=== PATIENT | male | born 1975 | race Hispanic/Latino ===

== ENCOUNTER 2017-06-03 21:04 | Emergency (ER) | payer MEDICAID ==
--- NOTE | 2017-06-03 21:38 | C.PDOC ---
History Of Present Illness Patient presents to the ER with a complaint of feeling weak, tired, and has noticed increased urination, associated with constipation. Patient states he feels very tired and reports he has been exerting himself shoveling snow. Denies dysuria, nausea, vomiting, fever, or chills. Time Seen by Provider: 06/03/17 21:37 Chief Complaint (Nursing): Male Genitourinary History Per: Patient History/Exam Limitations: no limitations Onset/Duration Of Symptoms: Hrs Current Symptoms Are (Timing): Still Present Severity: Moderate Pain Scale Rating Of: 4 Quality Of Discomfort: Unable To Describe Associated Symptoms: Constipation. denies: Fever, Chills, Nausea, Vomiting Alleviating Factors: None Recent travel outside of the [place]: No Past Medical History Reviewed: Historical Data, Nursing Documentation, Vital Signs Vital Signs: Last Vital Signs Temp 98.0 F 06/04/17 01:46 Pulse 83 06/04/17 01:46 Resp 16 06/04/17 01:46 BP 109/58 L 06/04/17 01:46 Pulse Ox 95 06/04/17 01:46 - Medical History PMH: Asthma Family History: States: No Known Family Hx - Social History Hx Tobacco Use: Yes Hx Alcohol Use: Yes Hx Substance Use: Yes - Immunization History Hx Tetanus Toxoid Vaccination: Yes Hx Influenza Vaccination: No Hx Pneumococcal Vaccination: No Review Of Systems Constitutional: Positive for: Weakness. Negative for: Fever, Chills Gastrointestinal: Positive for: Constipation. Negative for: Nausea, Vomiting, Abdominal Pain, Diarrhea Genitourinary: Positive for: Other (Increased urination). Negative for: Dysuria Physical Exam - Physical Exam Appears: Non-toxic, No Acute Distress Skin: Warm, Dry Head: Normacephalic Oral Mucosa: Moist Chest: Symmetrical, No Tenderness Cardiovascular: Rhythm Regular Respiratory: No Rales, No Rhonchi, No Wheezing Gastrointestinal/Abdominal: Soft, No Tenderness Neurological/Psych: Oriented x3 ED Course And Treatment - Laboratory Results Result Diagrams: 06/03/17 22:43 06/03/17 22:43 O2 Sat by Pulse Oximetry: 97 (Room air) Pulse Ox Interpretation: Normal - Radiology CXR: Interpreted by Me, Viewed By Me CXR Interpretation: No: Infiltrates, Fracture, Pnemothorax - Other Rad obstr X-Ray: Interpreted by Me, Viewed By Me Interpretation: no free air, lots of stool, no obstr Progress Note: Blood work, CXR, and urinalysis ordered. IV fluids administered. Reevaluation Time: 05:06 Reassessment Condition: Improved Disposition Counseled Patient/Family Regarding: Studies Performed, Diagnosis, Need For Followup, Rx Given - Disposition Referrals: [facility] [Outside] Disposition: HOME/ ROUTINE Disposition Time: 21:38 Condition: FAIR Prescriptions: Polyethylene Glycol 3350 [Miralax] 17 gm PO DAILY #270 ml Instructions: Constipation, Adult (DC) Forms: [employer] (Maori) - Clinical Impression Clinical Impression: Abdominal pain, Constipation - Scribe Statement The provider has reviewed the documentation as recorded by the Scribe Sukh gR All medical record entries made by the Scribe were at my direction and personally dictated by me. I have reviewed the chart and agree that the record accurately reflects my personal performance of the history, physical exam, medical decision making, and the department course for this patient. I have also personally directed, reviewed, and agree with the discharge instructions and disposition.
[2017-06-03] MEDS ORDERED: Sodium Chloride 0.9% 1,000 ML IV ONE (21:51)
[2017-06-03 22:36] LABS: VENOUS BLOOD GAS BASE EXCESS 6.2 mmol/L (0.0-2.0); VENOUS BLOOD GAS PCO2 54 mmHg (40-60); VENOUS BLOOD GAS PO2 18 mm/Hg (30-55); VENOUS BLOOD PH 7.39 (7.32-7.43)
[2017-06-03 22:47] LABS: BASO # 0.1 K/uL (0.0-0.2); BASO % 1.3 % (0.0-2.0); EOS # 0.1 K/uL (0.0-0.7); HEMOGLOBIN 13.9 g/dL (12.0-18.0); LYMPH # 1.3 K/uL (1.0-4.3); LYMPH % 19.4 % (20.0-40.0); MEAN CELL VOLUME 96.6 fL (80.0-94.0); MEAN CORPUSCULAR HEMOGLOBIN 33.7 pg (27.0-31.0); MEAN CORPUSCULAR HGB CONC 34.8 g/dL (33.0-37.0); MONO # 0.7 K/uL (0.0-0.8); MONO % 9.6 % (0.0-10.0); NEUT # 4.7 K/uL (1.8-7.0); NEUT % 68.7 % (50.0-75.0); RBC 4.14 Mil/uL (4.40-5.90); RED CELL DISTRIBUTION WIDTH 13.8 % (11.5-14.5); WHITE BLOOD COUNT 6.9 K/uL (4.8-10.8)
[2017-06-03 23:01] LABS: ALB/GLOB RATIO 1.3 (1.0-2.1); ALBUMIN 4.1 g/dL (3.5-5.0); CALCIUM 8.8 mg/dl (8.6-10.4); GFR AFRICAN-AMERICAN > 60; GFR NON-AFRICAN AMERICAN > 60; LIPASE 37 U/L (23-300)
[2017-06-03 23:06] LABS: ALT/SGPT 30 U/L (21-72); AST/SGOT 51 U/L (17-59); BLOOD UREA NITROGEN 19 mg/dL (9-20)
[2017-06-04 01:48] VITALS: RESP 16
[2017-06-04 05:26] VITALS: BP 105/62; PULSE 82; TEMP 97.7; O2SAT 96
--- NOTE | 2017-06-04 07:31 | RAD ---
Chest x-ray single frontal view History: Shortness of breath. Comparison: None available. Findings: No focal infiltrate or effusion. Heart size within normal limits. Mild left hilar prominence. Impression: No focal infiltrate or effusion.
--- NOTE | 2017-06-04 08:28 | RAD ---
Abdomen four views History: Abdominal pain. Constipation. Comparison: None available. Findings: Lung arreaga are clear. Relative paucity of small bowel gas. Moderate fecal retention in the colon. Calcified phleboliths in the pelvis. Impression: Nonspecific bowel gas pattern with moderate fecal retention in the colon. Relative paucity of small bowel gas.
== END 2017-06-04 06:04 | disposition home or self-care (01) ==
LOC: C.ER 21:04
DX: K59.00 Constipation, unspecified (principal); R10.9 Unspecified abdominal pain; Z72.0 Tobacco use
CPT/HCPCS: 71045; 74022; 80053; 82009; 82803; 83690; 83735; 85025; 99284; J7040

== ENCOUNTER 2017-08-14 21:01 | Emergency (ER) | payer MEDICAID ==
[2017-08-14 21:44] VITALS: BP 141/93; PULSE 78; RESP 18; TEMP 98.1; O2SAT 99
[2017-08-14] MEDS ORDERED: Bacitracin 500 Units/gm Oint Foilpak UD TOP ONE (21:44)
--- NOTE | 2017-08-14 21:47 | C.PDOC ---
History Of Present Illness 41yo male, presents to ER with complaints of right foot pain for the last couple days. Patient states he is homeless and walks around a lot which he believed caused the pain. Patient is requesting to soak his feet. He denies any trauma, rash, itching to the foot, change in sensation, fevers or chills. Time Seen by Provider: 08/14/17 21:35 Chief Complaint (Nursing): Lower Extremity Problem/Injury History Per: Patient History/Exam Limitations: no limitations Onset/Duration Of Symptoms: Persistent Current Symptoms Are (Timing): Still Present Additional History Per: Patient Past Medical History Reviewed: Historical Data, Nursing Documentation, Vital Signs Vital Signs: Last Vital Signs Temp 98.1 F 08/14/17 21:42 Pulse 78 08/14/17 21:42 Resp 18 08/14/17 21:42 BP 141/93 H 08/14/17 21:42 Pulse Ox 99 08/15/17 11:51 - Medical History PMH: Asthma Surgical History: No Surg Hx Family History: States: No Known Family Hx, Unknown Family Hx - Social History Hx Tobacco Use: Yes Hx Alcohol Use: Yes Hx Substance Use: Yes - Immunization History Hx Tetanus Toxoid Vaccination: Yes Hx Influenza Vaccination: No Hx Pneumococcal Vaccination: No Review Of Systems Except As Marked, All Systems Reviewed And Found Negative. Constitutional: Negative for: Fever, Chills Musculoskeletal: Positive for: Foot Pain (right foot pain). Negative for: Other (trauma/injury to foot) Physical Exam - Physical Exam Appears: Non-toxic, No Acute Distress Skin: Warm, Dry Head: Atraumatic, Normacephalic Eye(s): bilateral: Normal Inspection, EOMI Neck: Supple Chest: Symmetrical Respiratory: No Accessory Muscle Use, Other (speaking in full sentences) Extremity: Normal ROM, Tenderness (tenderness to right 2nd toe with 1 cm circular area of erythema to the lateral aspect where 3rd toe is rubbing against it. mild discharge noted, no streaking or fluctuance.), No Pedal Edema, Capillary Refill (< 2 seconds), No Deformity, Other (+ nail hypertrophy on feet. no scaling of skin noted.) Pulses: Left Dorsalis Pedis: Normal, Right Dorsalis Pedis: Normal Neurological/Psych: Oriented x3, Normal Speech, Normal Motor, Normal Sensation ED Course And Treatment O2 Sat by Pulse Oximetry: 99 (RA) Pulse Ox Interpretation: Normal Progress Note: Feet soaked and cleaned, bacitracin applied and covereed with sterile dressing. No evidence of maría pedis. Patient given first dose of Kefflex in ER and instructed to take antibitoics as prescribed. Instructed to follow up in clinic in 2-3 days. Disposition - Disposition Disposition: HOME/ ROUTINE Disposition Time: 21:45 Condition: STABLE Additional Instructions: Follow up with your primary medical doctor or clinic in 2-3 days for further evaluation. Take medications as prescribed. Return to the emergency department at any time if symptoms persist or worsen. Prescriptions: Bacitracin OINT 1 applic TP BID #1 tube Cephalexin [cephalexin] 500 mg PO BID 7 Days cap Instructions: Wound Care (DC) Forms: [employer] (Bolivian) - Clinical Impression Clinical Impression: Toe pain, Open wound - PA / BUILDING MAINTENANCE TECHNICIAN / Resident Statement MD/DO has reviewed & agrees with the documentation as recorded. - Scribe Statement The provider has reviewed the documentation as recorded by the Scribe (Ciara Vidal) Provider Attestation: All medical record entries made by the Scribe were at my direction and personally dictated by me. I have reviewed the chart and agree that the record accurately reflects my personal performance of the history, physical exam, medical decision making, and the department course for this patient. I have also personally directed, reviewed, and agree with the discharge instructions and disposition.
[2017-08-14] MEDS ORDERED: Bacitracin 500 Units/gm Oint Foilpak UD ONE (21:59)
== END 2017-08-14 22:21 | disposition home or self-care (01) ==
LOC: C.ER 21:01
DX: S91.104A Unspecified open wound of right lesser toe(s) without damage to nail, initial encounter (principal); X58.XXXA Exposure to other specified factors, initial encounter; Z59.0 Homelessness

== ENCOUNTER 2017-08-16 04:12 | Emergency (ER) | payer MEDICAID ==
[2017-08-16 04:34] VITALS: BP 153/78; PULSE 82; TEMP 97.6; O2SAT 96
[2017-08-16] MEDS ORDERED: Bacitracin 500 Units/gm Oint Foilpak UD ONE (05:28)
[2017-08-16] MEDS ORDERED: Bacitracin 500 Units/gm Oint Foilpak UD TOP ONE (05:34)
--- NOTE | 2017-08-16 05:57 | C.PDOC ---
History Of Present Illness 41 year old male presents to the ED for evaluation of pain to the ingrown toenail on his left second toe which began 2 days ago. Patient notes drainage from the area. He denies fever, chills, or trauma to the area. Time Seen by Provider: 08/16/17 04:42 Chief Complaint (Nursing): Lower Extremity Problem/Injury History Per: Patient History/Exam Limitations: no limitations Onset/Duration Of Symptoms: Days (2) Current Symptoms Are (Timing): Still Present Additional History Per: Patient - Ankle/Foot Description Of Injury: denies: Fell, Struck With Object, Struck Against Object Past Medical History Reviewed: Historical Data, Nursing Documentation, Vital Signs Vital Signs: Last Vital Signs Temp 97.6 F 08/16/17 04:31 Pulse 82 08/16/17 04:31 Resp 18 08/16/17 06:10 BP 153/78 H 08/16/17 04:31 Pulse Ox 96 08/16/17 06:40 - Medical History PMH: Asthma Surgical History: No Surg Hx Family History: States: Unknown Family Hx - Social History Hx Tobacco Use: Yes Hx Alcohol Use: Yes Hx Substance Use: No - Immunization History Hx Tetanus Toxoid Vaccination: Yes Hx Influenza Vaccination: No Hx Pneumococcal Vaccination: No Review Of Systems Musculoskeletal: Positive for: Other (left 2nd toe pain ) Physical Exam - Physical Exam Appears: Non-toxic, No Acute Distress Skin: Normal Color, Warm, Dry, Other (pressure-like ulcer to the left second toe , near webbed space and third toe with purulent discharge. slight erythema noted to second toe. no erythema or warmth to foot ) Extremity: Normal ROM, Capillary Refill (less than 2 seconds ) Pulses: Left Dorsalis Pedis: Normal Neurological/Psych: Oriented x3, Normal Speech, Normal Cognition, Normal Sensation Gait: Steady ED Course And Treatment O2 Sat by Pulse Oximetry: 96 (on RA) Pulse Ox Interpretation: Normal Progress Note: Keflex PO and Motrin PO administered. Wound was cleaned with betadine and normal saline. Bacitracin applied. On re-examination, patient is resting comfortably, showing no signs of distress and is stable for discharge. Patient is advised to follow up with his PMD within 1-2 days for further evaluation and/or return to the ED if symptoms persist or worsen. Disposition Counseled Patient/Family Regarding: Diagnosis, Need For Followup, Rx Given - Disposition Referrals: [facility] [Outside] Disposition: HOME/ ROUTINE Disposition Time: 05:56 Condition: STABLE Additional Instructions: Please follow up in clinic Keep foot clean Return to ER if worse Prescriptions: Cephalexin [cephalexin] 500 mg PO Q6 #20 cap Ibuprofen [Motrin] 600 mg PO Q6H #20 tab Instructions: Wound Care (DC) Forms: [employer] (Israeli) - Clinical Impression Clinical Impression: Toe ulcer - PA / THERAPY ADMINISTRATIVE ASSISTANT / Resident Statement MD/DO has reviewed & agrees with the documentation as recorded. - Scribe Statement The provider has reviewed the documentation as recorded by the Scribe (Shama Stephens) All medical record entries made by the Scribe were at my direction and personally dictated by me. I have reviewed the chart and agree that the record accurately reflects my personal performance of the history, physical exam, medical decision making, and the department course for this patient. I have also personally directed, reviewed, and agree with the discharge instructions and disposition.
[2017-08-16 06:16] VITALS: RESP 18
== END 2017-08-16 06:10 | disposition home or self-care (01) ==
LOC: C.ER 04:12
DX: L97.529 Non-pressure chronic ulcer of other part of left foot with unspecified severity (principal)

== ENCOUNTER 2018-02-22 04:23 | Emergency (ER) | payer MEDICAID ==
[2018-02-22 04:32] VITALS: PULSE 80
[2018-02-22] MEDS ORDERED: Sodium Chloride 0.9% 1,000 ML IV ONE (04:39)
--- NOTE | 2018-02-22 04:42 | C.PDOC ---
History Of Present Illness 42 year old male with PMHx of rhabdomyolysis presents to the ED for evaluation of generalized weakness, muscle aches that started few hours [employer]. Patient reports he is homeless at this time. Patient denies known trauma, injury, fall, fever, chills, CP, SOB. Time Seen by Provider: 02/22/18 04:36 Chief Complaint (Nursing): Weakness/Neurological Deficit History Per: Patient History/Exam Limitations: no limitations Onset/Duration Of Symptoms: Hrs Current Symptoms Are (Timing): Still Present Associated Symptoms Preceding Syncopal Episode: No Predromal Symptoms (Sudden Onset) Seizure Or Post-ictal Symptoms: None Fall Associated With With Symptoms: No Severity: None Recent travel outside of the [place]: No Additional History Per: Patient Past Medical History Reviewed: Historical Data, Nursing Documentation, Vital Signs Vital Signs: Last Vital Signs Temp 97.3 F L 02/22/18 04:30 Pulse 80 02/22/18 04:30 Resp 16 02/22/18 04:30 BP 114/76 02/22/18 04:30 Pulse Ox 98 02/22/18 04:30 - Medical History PMH: Asthma Other PMH: rhabdomyolysis Surgical History: No Surg Hx Family History: States: Unknown Family Hx - Social History Hx Tobacco Use: Yes Hx Alcohol Use: Yes Hx Substance Use: Yes - Immunization History Hx Tetanus Toxoid Vaccination: Yes Hx Influenza Vaccination: No Hx Pneumococcal Vaccination: No Review Of Systems Constitutional: Positive for: Malaise. Negative for: Fever, Chills Cardiovascular: Negative for: Chest Pain Respiratory: Negative for: Cough, Shortness of Breath Gastrointestinal: Negative for: Nausea, Vomiting, Abdominal Pain Skin: Negative for: Rash Neurological: Negative for: Weakness, Numbness Physical Exam - Physical Exam Appears: Non-toxic, No Acute Distress Skin: Normal Color, Warm, Dry Head: Atraumatic, Normacephalic Eye(s): bilateral: Normal Inspection Neck: Normal ROM, Supple Chest: Symmetrical Cardiovascular: Rhythm Regular Respiratory: Normal Breath Sounds, No Rales, No Rhonchi, No Wheezing Gastrointestinal/Abdominal: Soft, No Tenderness, No Guarding, No Rebound Extremity: Normal ROM, No Tenderness, No Swelling Neurological/Psych: Oriented x3, Normal Speech, Normal Cognition Gait: Steady ED Course And Treatment - Laboratory Results Result Diagrams: 02/22/18 05:10 02/22/18 05:10 O2 Sat by Pulse Oximetry: 98 (ON RA) Pulse Ox Interpretation: Normal Medical Decision Making Medical Decision Making: ro rhbado. noother medical complaintsPlan: * Labs * IV fluids cpk neg. pt sleeping innad. abd soft no ttp. steady gait. stable for dc. vitals stable. clincally sober. Disposition - Disposition Disposition: HOME/ ROUTINE Disposition Time: 05:30 Condition: STABLE Additional Instructions: return to er with worsening. follow up in clinic. Instructions: Fatigue (DC) Forms: [employer] (Nauruan) - Clinical Impression Clinical Impression: Muscle weakness - Scribe Statement The provider has reviewed the documentation as recorded by the Scribe Tomi Odonnell All medical record entries made by the Scribe were at my direction and personally dictated by me. I have reviewed the chart and agree that the record accurately reflects my personal performance of the history, physical exam, medical decision making, and the department course for this patient. I have also personally directed, reviewed, and agree with the discharge instructions and disposition.
[2018-02-22] MEDS ORDERED: Sodium Chloride 0.9% 1,000 ML ONE (04:57)
[2018-02-22 05:14] LABS: BASO % 0.3 % (0.0-2.0); EOS # 0.2 K/uL (0.0-0.7); EOS % 2.5 % (0.0-4.0); HEMOGLOBIN 14.2 g/dL (12.0-18.0); LYMPH # 1.7 K/uL (1.0-4.3); LYMPH % 24.2 % (20.0-40.0); MEAN CORPUSCULAR HEMOGLOBIN 33.3 pg (27.0-31.0); MEAN CORPUSCULAR HGB CONC 34.3 g/dL (33.0-37.0); MEAN PLATELET VOLUME 7.7 fL (7.2-11.7); MONO # 0.9 K/uL (0.0-0.8); MONO % 12.1 % (0.0-10.0); NEUT # 4.4 K/uL (1.8-7.0); NEUT % 60.9 % (50.0-75.0); NRBC % 0.1 % (0.0-2.0); RBC 4.25 Mil/uL (4.40-5.90); RED CELL DISTRIBUTION WIDTH 14.1 % (11.5-14.5); WHITE BLOOD COUNT 7.2 K/uL (4.8-10.8)
[2018-02-22 05:21] LABS: PROTHROMBIN TIME 10.8 SECONDS (9.7-12.2)
[2018-02-22 05:28] LABS: ALB/GLOB RATIO 1.4 (1.0-2.1); ALBUMIN 4.1 g/dL (3.5-5.0); ALT/SGPT 75 U/L (21-72); AST/SGOT 54 U/L (17-59); BLOOD UREA NITROGEN 17 mg/dL (9-20); CALCIUM 8.9 mg/dl (8.6-10.4); GFR NON-AFRICAN AMERICAN > 60
[2018-02-22 05:38] VITALS: TEMP 98.1
[2018-02-22 06:31] VITALS: BP 107/64; RESP 20; O2SAT 97
== END 2018-02-22 06:31 | disposition home or self-care (01) ==
LOC: C.ER 04:23
DX: M62.81 Muscle weakness (generalized) (principal)
CPT/HCPCS: 80053; 82550; 85025; 85610; 85730; 96360; 99285; J7030

== ENCOUNTER 2018-03-06 05:54 | Emergency (ER) | payer MEDICAID ==
[2018-03-06 06:14] VITALS: O2SAT 97
[2018-03-06] MEDS ORDERED: Albuterol-Ipratrop 3 mg / 0.5 (3 ml) UD ONE ×2 (06:24→06:46)
--- NOTE | 2018-03-06 06:28 | C.PDOC ---
History Of Present Illness 42 year old male with PMHx of childhood asthma presents to the ED c/o worsening SOB and wheezing for the past 3 weeks. Patient states he feels constricted, not able to take a deep breath in. Patient still smokes. Patient denies fever, chills, headache, CP, palpitations, recent travel, sick contacts. <Cat Lopez - Last Filed: 03/06/18 06:55> History Per: Patient History/Exam Limitations: no limitations Onset/Duration Of Symptoms: Days Current Symptoms Are (Timing): Still Present Initiating Event: Upper Respiratory Illness Quality: Tightness Exacerbating Factor(s): Coughing Current Respiratory Medications: See Home Med List Recent travel outside of the [place]: No Additional History Per: Patient <JohnCta - Last Filed: 03/06/18 06:55> <Anthony Luis Jr. - Last Filed: 03/06/18 07:28> Time Seen by Provider: 03/06/18 06:28 Chief Complaint (Nursing): Shortness Of Breath Past Medical History Reviewed: Historical Data, Nursing Documentation, Vital Signs Vital Signs: Last Vital Signs Temp 97.6 F 03/06/18 06:08 Pulse 73 03/06/18 06:08 Resp 20 03/06/18 06:16 BP Pulse Ox 97 03/06/18 06:16 - Medical History PMH: Asthma Surgical History: No Surg Hx Family History: States: Unknown Family Hx - Social History Hx Tobacco Use: Yes Hx Alcohol Use: Yes Hx Substance Use: No (denies) - Immunization History Hx Tetanus Toxoid Vaccination: Yes Hx Influenza Vaccination: No Hx Pneumococcal Vaccination: No <JohnCat - Last Filed: 03/06/18 06:55> Vital Signs: Last Vital Signs Temp 97.6 F 03/06/18 06:08 Pulse 73 03/06/18 06:08 Resp 20 03/06/18 06:16 BP Pulse Ox 97 03/06/18 06:56 <Anthony Luis Jr. - Last Filed: 03/06/18 07:28> Review Of Systems Constitutional: Negative for: Fever, Chills ENT: Negative for: Nose Congestion, Throat Pain Cardiovascular: Negative for: Chest Pain, Palpitations Respiratory: Positive for: Cough, Shortness of Breath, Wheezing. Negative for: Sputum Gastrointestinal: Negative for: Nausea, Vomiting, Abdominal Pain Skin: Negative for: Rash Neurological: Negative for: Headache, Dizziness <JohnCat - Last Filed: 03/06/18 06:55> Physical Exam - Physical Exam Appears: Non-toxic, No Acute Distress Skin: Normal Color, Warm, Dry Head: Atraumatic, Normacephalic Eye(s): bilateral: Normal Inspection Oral Mucosa: Moist Neck: Normal ROM, Supple Chest: Symmetrical Cardiovascular: Rhythm Regular Respiratory: No Accessory Muscle Use, No Rales, No Rhonchi, Wheezing (expiratory), Other (NARD) Gastrointestinal/Abdominal: Soft, No Tenderness, No Guarding, No Rebound Extremity: Normal ROM, No Tenderness, No Swelling Neurological/Psych: Oriented x3, Normal Speech, Normal Cognition Gait: Steady <Cat Lopez - Last Filed: 03/06/18 06:55> ED Course And Treatment O2 Sat by Pulse Oximetry: 97 (ON RA) Pulse Ox Interpretation: Normal - Radiology CXR: Interpreted by Me, Viewed By Me <Cat Lopez - Last Filed: 03/06/18 06:55> Medical Decision Making Medical Decision Making: Plan: * CXR * Duoneb * Prednsione 60 mg PO <Cat Lopez - Last Filed: 03/06/18 06:55> Medical Decision Makin:20 AM - Pt signed out to me by Dr. Cat Raymundo. Pt states he feels better. No wheezing on lung exam. Questionable early infiltrate on CXR but no official reading by radiology as of yet. Will treat for pneumonia--d/c on abx and with MDI. <Anthony Luis Jr. - Last Filed: 03/06/18 07:28> Disposition Counseled Patient/Family Regarding: Studies Performed, Diagnosis - Disposition Disposition Time: 07:00 <Cat Lopez - Last Filed: 03/06/18 06:55> Counseled Patient/Family Regarding: Studies Performed, Diagnosis, Need For Fol lowup, Rx Given - POA Present On Arrival: None <Anthony Luis Jr. - Last Filed: 03/06/18 07:28> - Disposition Referrals: [facility] [Outside] Disposition: HOME/ ROUTINE Condition: IMPROVED Additional Instructions: Mr. Grant, thank you for letting us take care of you today. Return to the ER if your symptoms worsen, or if any problems. It is important that you quit smoking. Smoking causes pneumonia, cancer, emphysema and can trigger asthma attacks. Follow up with your primary care physician. If you do not have a primary care physician, then call our [facility] at the phone number listed below to make a follow up appointment for this week. Prescriptions: Albuterol HFA [Ventolin HFA 90 mcg/actuation (8 g)] 2 puff IH [id number] PRN #1 inhaler PRN Reason: Wheezing Azithromycin [Zithromax] 1 tab PO DAILY #3 tab predniSONE [Prednisone] 1 tab PO BID #10 tab Instructions: Asthma, Adult (DC), Inhalers, Pneumonia, Adult (DC), Quitting Smoking for Older Adults Print Language: TAIWANESE - Clinical Impression Clinical Impression: Asthma exacerbation, Community acquired pneumonia - Scribe Statement The provider has reviewed the documentation as recorded by the Scribe Tomi Odonnell All medical record entries made by the Scribe were at my direction and personally dictated by me. I have reviewed the chart and agree that the record accurately reflects my personal performance of the history, physical exam, medical decision making, and the department course for this patient. I have also personally directed, reviewed, and agree with the discharge instructions and disposition. <Cat Lopez - Last Filed: 03/06/18 06:55> Physician Patient Turnover Patient Signed Over To: Anthony Luis Jr. Handoff Comments: SONY CONTRERAS <Cat Lopez - Last Filed: 03/06/18 06:55>
[2018-03-06] MEDS: Albuterol-Ipratrop 3 mg / 0.5 (3 ml) UD IH SCH (06:42)
[2018-03-06] MEDS ORDERED: Albuterol 0.083% Inhal Sol (2.5 mg/3 mL) UD IH STA (07:19)
[2018-03-06 07:33] VITALS: BP 133/83; PULSE 66; RESP 18; TEMP 98.8
[2018-03-06] MEDS ORDERED: Albuterol 0.083% Inhal Sol (2.5 mg/3 mL) UD ONE (07:34)
--- NOTE | 2018-03-06 08:38 | RAD ---
Date of service: 03/06/2018 HISTORY: Shortness of breath COMPARISON: 06/03/2017. TECHNIQUE: Chest PA and lateral FINDINGS: LINES AND TUBES: None. LUNG AND PLEURA: The lungs are well inflated and clear. No pleural effusion or pneumothorax. HEART AND MEDIASTINUM: The heart is not enlarged. No aortic atherosclerotic calcification present. The hilar and mediastinal contours are within normal limits. SKELETAL STRUCTURES: The bony structures are within normal limits for the patient's age. VISUALIZED UPPER ABDOMEN: Normal. OTHER FINDINGS: None. IMPRESSION: No active pulmonary disease.
== END 2018-03-06 07:45 | disposition home or self-care (01) ==
LOC: C.ER 05:54
DX: J45.901 Unspecified asthma with (acute) exacerbation (principal); J18.9 Pneumonia, unspecified organism; Z72.0 Tobacco use